=== PATIENT | male | born 1950 | race Caucasian/White ===

== ENCOUNTER → 2021-05-23 | Day surgery (SDC) | payer MEDICARE ==
[~2021-05-23] VITALS: Ht 193 cm; Wt 108.0 kg
[~2021-05-23] MED LIST: AMLODIPINE-BEN1 EAC5 PO; OMEPRAZOLE40 MG PO; VITAMIN B122500 MCG PO; VITAMIN D325 MC1 PO
[2021-05-23 08:08] LABS: HCT 46.3 % (42.0-52.0); HGB 15.9 g/dl (13.2-18.0); MCH 29.3 pg (25.0-31.0); MCHC 34.3 g/dL (32.0-36.0); MCV 85.3 fL (78.0-100.0); MPV 8.5 fL (6.0-9.5); RBC 5.43 M/uL (4.70-6.00); RDW 12.6 % (11.5-14.0); WBC 7.7 K/uL (4.0-10.5)
[2021-05-23 08:12] LABS: ALBUMIN 4.3 g/dL (3.4-5.0); BILIRUBIN - TOTAL 0.6 mg/dL (0.2-1.0); BUN/CREAT RATIO (CALC) 11.2 RATIO; CREATININE 0.89 mg/dL (0.67-1.17); GLOBULIN (CALCULATION) 3.8 g/dL; TOTAL PROTEIN 8.1 g/dL (6.4-8.2)
== END | disposition home or self-care (01) ==
LOC: FAS 07:33
PROVIDERS: Surgery
DX: Z12.11 Encounter for screening for malignant neoplasm of colon (principal); K57.30 Diverticulosis of large intestine without perforation or abscess without bleeding; K21.9 Gastro-esophageal reflux disease without esophagitis; I10 Essential (primary) hypertension; C61 Malignant neoplasm of prostate; Z87.891 Personal history of nicotine dependence; Z88.1 Allergy status to other antibiotic agents
CPT/HCPCS: 36415; 80053; J2250; J2704; J7120